=== PATIENT | female | born 1945 ===

== ENCOUNTER 2020-09-09 10:37 | Outpatient (REF) | payer MEDICARE, SELFPAY ==
--- NOTE | 2020-09-09 10:46 | XR_ITS ---
EXAMINATION: XR CHEST CLINICAL INFORMATION: Bronchitis COMPARISON: None TECHNIQUE: 2 views of the chest were obtained. FINDINGS: The lungs are well expanded. There is no focal consolidation, edema, or effusion. No pneumothorax. The cardiomediastinal silhouette is within normal limits of size with a calcified aorta. No acute osseous abnormality. Scoliotic curvature of the spine. XR/XR chest 2V IMPRESSION: No acute pulmonary finding.
== END 2020-09-09 10:38 | disposition home or self-care (01) ==
LOC: HO.XRAY 10:37
PROVIDERS: Visit Provider Nurse Practitioner Family
DX: J40 Bronchitis, not specified as acute or chronic (principal)
CPT/HCPCS: 71046

== ENCOUNTER 2020-09-21 11:37 | Emergency (ER) | payer MEDICARE, SELFPAY ==
[2020-09-21 11:51] VITALS: BP 159/70; PULSE 87; RESP 26; TEMP 37; O2SAT 89; BMI 25.2
--- NOTE | 2020-09-21 11:55 | ECG_ITS ---
Test Reason : SOB Blood Pressure : / mmHG Vent. Rate : 091 BPM Atrial Rate : 091 BPM P-R Int : 148 ms QRS Dur : 078 ms QT Int : 340 ms P-R-T Axes : 039 038 024 degrees QTc Int : 418 ms Normal sinus rhythm Possible Left atrial enlargement Nonspecific ST abnormality Abnormal ECG No previous ECGs available Referred By: Jos Purvis Electronically Signed By:ABIGAIL CELESTE MD
--- NOTE | 2020-09-21 11:55 | XR_ITS ---
EXAMINATION: XR CHEST CLINICAL INFORMATION: Source of breath COMPARISON: September 09, 2020 TECHNIQUE: AP portable view of the chest was obtained. FINDINGS: There is no evidence of acute parenchymal disease, pneumothorax, or pleural effusion. Heart normal size. No evidence of pulmonary edema. Scoliosis of the thoracic and lumbar spine present. XR/XR chest 1V IMPRESSION: No acute disease.
--- NOTE | 2020-09-21 11:58 | ED.SOB ---
HPI - SOB/Dyspnea General Chief Complaint: Dyspnea Stated Complaint: sob Time Seen by Provider: 09/21/20 11:55 Source: patient Mode of arrival: ambulatory Limitations: no limitations History of Present Illness HPI Narrative: patient with history of COPD/bronchitis chronic smoker >50 pack years been coughing for last 2 weeks seen PCP on 09/09 started on Levaquin for 1 week and still patient coughing for last few days not feeling better , mostly cough is dry with mucopurulent phlegm sometimes. patient denies any fever or contact with any COVID patient. Patient denies any chest pain or leg swelling, patient denied any significant weight loss or loss of appetite she had a x-ray done on 09/09 which was negative MD elicited complaint: shortness of breath Pertinent past history: COPD Onset (ago): week(s) (2) Timing: constant Severity: moderate Exacerbating factors: coughing and deep breaths Relieving factors: bronchodilators Known history of: COPD Associated symptoms: pain with inspiration, cough and sputum production Treatment prior to arrival: bronchodilator Related Data Home oxygen amount: none Previous Rx's Medication Instructions Recorded albuterol sulfate 90 mcg/actuation 2 puff INHALATION Q6H PRN 15 Days 09/09/20 aerosol inhaler #6.7 g dextromethorphan-guaifenesin 30 1 tab PO Q12H PRN 10 Days #20 tab 09/09/20 mg-600 mg tablet extended [id number] hr levofloxacin 500 mg tablet 500 mg PO DAILY 7 Days #7 tab 09/09/20 Allergies Allergy/AdvReac Type Severity Reaction Status Date / Time Sulfa (Sulfonamide Allergy Unknown UNKNOWN Verified 09/21/20 11:51 Antibiotics) [SULFA (SULFONAMIDE ANTIBIOTICS)] Review of Systems Constitutional: Constitutional: Denies chills, Denies fatigue, Denies fever(s), Denies headache(s), Denies lethargy and Denies malaise Eyes: Eyes: Reports no additional eye complaints ENT: Reports system reviewed and no additional complaints, except as documented and Denies headache(s) Cardiovascular: Cardiovascular: Reports no additional cardiovascular complaints, Denies pedal edema, Reports dyspnea and Reports dyspnea on exertion Respiratory: Respiratory: Reports chest congestion, Reports cough, Reports pain on inspiration, Reports pain with cough, Reports dyspnea, Reports dyspnea on exertion and Reports wheezing Gastrointestinal: Gastrointestinal: Denies abdominal pain, Denies diarrhea, Denies nausea and Denies vomiting Genitourinary: Genitourinary: Reports no additional female genitourinary complaints, Denies dysuria, Denies flank pain, Denies urinary hesitancy and Denies urinary urgency Musculoskeletal: Musculoskeletal: Reports no additional musculoskeletal complaints Neurologic: Reports system reviewed and no additional complaints, except as documented and Denies headache(s) Endocrine: Endocrine: Denies fatigue Allergic/Immunologic: Allergic/Immunologic: Reports wheezing PMFSH Past Medical History Medical History Bronchitis Lower back pain Social History Social History Alcohol intake: never Smoked in Last 30 Days: No Use of substances other than those prescribed or required for medical reasons: No Advance Directives: No Advance Directives Information Provided: Yes Physical Exam Vital Signs: Vital Signs: Last Vital Signs Temp 98.6 F 09/21/20 11:51 Pulse 97 09/21/20 15:39 Resp 20 09/21/20 15:39 BP 121/78 09/21/20 15:39 Pulse Ox 96 09/21/20 16:02 Body Mass Index 25.2 Const: General: cooperative, well developed, alert, awake and acute distress moderate Nutritional Appearance: average body habitus Orientation/consciousness: oriented to person, oriented to place, oriented to time and patient oriented x3 Limitations: no limitations HENMT: Head: Yes normal to inspection Ears: hearing grossly normal bilaterally Mouth: moist mucous membranes Eyes: Conjunctivae: conjunctivae normal Sclerae: sclerae normal Neck: Neck: Yes normal visual inspection Thyroid: Thyroid normal Carotids: normal carotid upstroke Resp: Effort & Inspection: able to speak in complete sentences, audible wheezes, Actively coughing, nasal flaring, respiratory distress, retractions and tachypneic Auscultation: no crackles, rales, rhonchi and wheezes Percussion: percussion normal Cardio: Jugular venous distension: no JVD Rhythm: regular rhythm Heart sounds: S1 normal heart sound present and S2 normal heart sound present Peripheral pulses: Peripheral pulses 2+ throughout GI: Inspection: Yes normal to inspection Palpation (GI): Soft to palpation and nontender : General: Yes no CVA tenderness Back/Spine/Pelvis: Back: no CVA tenderness Thoracic/Lumbar Spine: thoracic and lumbar spine normal to inspection Neuro: General: oriented to person, oriented to place, oriented to time and patient oriented x3 Extrem: General: Yes normal to inspection, Yes no calf tenderness and No pedal edema MDM - SOB/Dyspnea MDM Narrative Medical decision making narrative: patient chronic smoker with COPD desaturating on ambulation, dropped her pulse ox to 82% on ambulation to bathroom received nebulizing treatment in the ER and IV steroid CT chest was done which showed right lung mass specially around main bronchus narrowing it. We do not have any intervention sales associate here will transfer to [facility] under Dr. Combs in the ER Medical Records Attestation: I reviewed the patient's medical records. Lab Data Attestation: I reviewed the patient's lab results. Result diagrams: 09/21/20 12:06 09/21/20 12:06 Labs: Lab Results 09/21/20 09/21/20 09/21/20 Range/Units 12:06 12:06 12:06 WBC 6.1 (4.8-10.8) X10*3/uL RBC 4.16 L (4.20-5.50) X10*6/uL Hgb 14.5 (12.0-16.0) g/dl Hct 42.6 (37-47) % MCV 102.4 H (80-98) fL MCH 34.9 H (27.0-33.0) pg MCHC 34.0 (31.0-35.0) g/dl RDW 11.9 (11.0-16.0) % Plt Count 276 (160-400) X10*3/uL MPV 9.3 L (9.4-12.3) fL Immature Gran % (Auto) 0.3 (0.0-0.4) % Neut % (Auto) 69.4 (45-73) % Lymph % (Auto) 18.2 L (20-40) % Bullock % (Auto) 11.1 H (2-11) % Eos % (Auto) 0.5 (0-4) % Baso % (Auto) 0.5 (0-2) % Lymph # (Auto) 1.1 L (1.2-4.9) X10*3/uL Bullock # (Auto) 0.7 (0.1-1.2) X10*3/uL Eos # (Auto) 0.0 (0.0-0.4) X10*3/uL Baso # (Auto) 0.0 (0.0-0.2) X10*3/uL Abs Immat Gran (auto) 0.02 (0.00-0.03) X10*3/uL Absolute Neuts (auto) 4.2 (2.0-8.3) X10*3/uL Absolute Nucleated RBC 0.000 (0.0-0.012) X10*3/uL Nucleated RBC % (auto) 0.0 (0.0-0.2) /100WBC PT (10.8-13.0) SEC INR (0.9-1.1) APTT (24.1-38.0) SEC Sodium 136 (135-145) mmol/L Potassium 4.0 (3.3-5.1) mmol/l Chloride 98 (96-108) mmol/L Carbon Dioxide 28 (22-29) mmol/L Anion Gap 14 (12-20) BUN 5 L (9-16) mg/dL Creatinine 0.67 (0.5-1.4) mg/dL Estim Creat Clear Calc 72.7 Estimated GFR > 60 Random Glucose 113 (60-115) mg/dL Lactic Acid (0.5-2.0) mmol/L Calcium 9.2 (8.4-10.2) mg/dL Total Bilirubin 0.8 (0.0-1.0) mg/dL Direct Bilirubin 0.3 (0.0-0.5) mg/dL AST 20 (5-31) U/L ALT 12 (0-31) U/L Alkaline Phosphatase 79 (39-117) U/L Troponin I High Sens (<3.5-17.0) ng/L B-Natriuretic Peptide (<100) pg/mL Total Protein 7.1 (6.5-8.0) g/dL Albumin 4.2 (3.5-5.0) g/dL Coronavirus (PCR) NEGATIVE (Negative) Influenza Type A (PCR) NEGATIVE (Negative) Influenza Type B (PCR) NEGATIVE (Negative) RSV RNA Qual (PCR) NEGATIVE (Negative) 11/28/20 11/28/20 11/28/20 Range/Units 12:06 12:06 12:06 WBC (4.8-10.8) X10*3/uL RBC (4.20-5.50) X10*6/uL Hgb (12.0-16.0) g/dl Hct (37-47) % MCV (80-98) fL MCH (27.0-33.0) pg MCHC (31.0-35.0) g/dl RDW (11.0-16.0) % Plt Count (160-400) X10*3/uL MPV (9.4-12.3) fL Immature Gran % (Auto) (0.0-0.4) % Neut % (Auto) (45-73) % Lymph % (Auto) (20-40) % Bullock % (Auto) (2-11) % Eos % (Auto) (0-4) % Baso % (Auto) (0-2) % Lymph # (Auto) (1.2-4.9) X10*3/uL Bullock # (Auto) (0.1-1.2) X10*3/uL Eos # (Auto) (0.0-0.4) X10*3/uL Baso # (Auto) (0.0-0.2) X10*3/uL Abs Immat Gran (auto) (0.00-0.03) X10*3/uL Absolute Neuts (auto) (2.0-8.3) X10*3/uL Absolute Nucleated RBC (0.0-0.012) X10*3/uL Nucleated RBC % (auto) (0.0-0.2) /100WBC PT 12.6 (10.8-13.0) SEC INR 1.1 (0.9-1.1) APTT 33.4 (24.1-38.0) SEC Sodium (135-145) mmol/L Potassium (3.3-5.1) mmol/l Chloride (96-108) mmol/L Carbon Dioxide (22-29) mmol/L Anion Gap (12-20) BUN (9-16) mg/dL Creatinine (0.5-1.4) mg/dL Estim Creat Clear Calc Estimated GFR Random Glucose (60-115) mg/dL Lactic Acid 1.4 (0.5-2.0) mmol/L Calcium (8.4-10.2) mg/dL Total Bilirubin (0.0-1.0) mg/dL Direct Bilirubin (0.0-0.5) mg/dL AST (5-31) U/L ALT (0-31) U/L Alkaline Phosphatase (39-117) U/L Troponin I High Sens < 3.5 (<3.5-17.0) ng/L B-Natriuretic Peptide 33 (<100) pg/mL Total Protein (6.5-8.0) g/dL Albumin (3.5-5.0) g/dL Coronavirus (PCR) (Negative) Influenza Type A (PCR) (Negative) Influenza Type B (PCR) (Negative) RSV RNA Qual (PCR) (Negative) Imaging Data CT scan - chest: Attestation: I personally reviewed and interpreted this imaging study as follows: My impression: [place] [id number] CT Scan Report Signed Patient: Aruna ColbertMR#: [id number] : 7Acct:[id number] Age/Sex: 75 / FADM Date: 09/21/20 Loc: HO.ED Attending Dr: Ordering Physician: Jos Purvis MD Date of Service: 09/21/20 Procedure(s): CT chest wo con Accession Number(s): [id number] cc: Jos Purvis MD~ EXAMINATION: CT CHEST WITHOUT CONTRAST CLINICAL INFORMATION: Left lower lobe pneumonia. Joints of breath COMPARISON: Plain film chest studies of same day and September 09, 2020 TECHNIQUE: Multidetector volumetric CT imaging of the chest was done. Axial MIP volume rendering provided. Sagittal and coronal reformatted images were obtained. This CT examination was performed using dose optimization techniques as appropriate, variously including the following: *Automated exposure control *Adjustment of mA and/or kV according to patient size (this includes techniques or standardized protocols for targeted exams where dose is matched to indication/reason for exam; i.e. extremities or head) *Use of iterative reconstruction technique DLP: 250 mGy-cm FINDINGS: LUNGS: Within the right lower lobe there is a 2.1 x 2.7 x 2.9 cm mass without cavitation or calcification. There is extension medially with perihilar lymphadenopathy measuring approximately 3.3 x 1.9 x 6.5 cm in size extensive right hilar and mediastinal lymphadenopathy with some narrowing of the right mainstem bronchus. There are some scattered sub-4 mm densities present. A few scattered calcified granulomas are present. No bronchiectasis. MEDIASTINUM: Heart normal size. Coronary artery calcific dictation present as well as nonocclusive calcified plaque within the aortic arch. No thoracic aortic aneurysm. No pericardial effusion. There is extensive mediastinal lymphadenopathy extending from the vascular space along the right paratracheal region and extending into the precarinal region as well as subcarinal region. Right hilar lymphadenopathy present. As an example the precarinal lymphadenopathy measures approximately 3.0 x 4.1 cm in size and subcarinal lymphadenopathy measures 5.5 x 4.3 cm in size. PLEURA: There is no pleural effusion. No pleural mass or thickening. AXILLA: No lymphadenopathy. Status post previous right breast surgery. UPPER ABDOMEN: There is a left adrenal gland lesion measuring 3.1 x 2.3 cm in size. The right adrenal gland appears unremarkable. OSSEOUS STRUCTURES: No acute destructive bony lesions appreciated. There is scoliosis of the thoracic spine convex right and of the lumbar spine convex left. CT/CT chest wo con IMPRESSION: Large right lower lobe mass with perihilar, hilar, and mediastinal lymphadenopathy as described. Left adrenal gland lesion which may represent a metastatic lesion. This critical result was discussed with Dr. Purvis at 3:40 PM on September 21, 2020 and it was ascertained that the content and urgency of the report was understood at the time of direct communication. Dictated By:JUSTINE LUTZ MD Signed By:<Electronically signed by JUSTINE LUTZ MD in OV> ECG Data Attestation: I personally reviewed and interpreted this ECG as follows: ECG interpretation date: 09/21/20 Interpretation: normal sinus rhythm with heart rate of [address] T wave changes normal axis normal intervals impression no acute ischemia Discharge Plan Discharge Prescriptions: No Action levofloxacin 500 mg tablet 500 mg PO DAILY 7 Days Qty: 7 RF: 0 Mucinex DM 30-600 mg tablet extended release 12 hr 1 tab PO Q12H PRN (Reason: cough) 10 Days Qty: 20 RF: 0 albuterol sulfate 90 mcg/actuation HFA aerosol inhaler 2 puff inhalation Q6H PRN (Reason: shortness of breath or wheezing) 15 Days Qty: 6.7 RF: 0
--- NOTE | 2020-09-21 12:01 | PC.NURSE ---
2l nc applied. tachipnea decreasing with rest. spking full sentences.
[2020-09-21 12:02] VITALS: O2SAT 100
[2020-09-21] MEDS: Albuterol Sulfate (0.083%) 2.5 MG/3 ML VIAL.NEB 5 MG INHALE (12:06)
[2020-09-21] MEDS: Albuterol/Iprat 2.5/0.5MG 3 ML AMPUL.NEB INHALE (12:07)
[2020-09-21 12:11] LABS: MANUAL DIFF FLAG NO
[2020-09-21 12:12] VITALS: PULSE 88; O2SAT 96; O2SAT 98
[2020-09-21 12:13] LABS: Basophils Percent Auto 0.5 % (0-2); Eosinophils Percent Auto 0.5 % (0-4); Hematocrit 42.6 % (37-47); Hemoglobin 14.5 g/dl (12.0-16.0); Imm Gran Abs Auto 0.02 X10*3/uL (0.00-0.03); Imm Gran Pct Auto 0.3 % (0.0-0.4); Lymphocytes Absolute Auto 1.1 X10*3/uL (1.2-4.9); Lymphocytes Percent Auto 18.2 % (20-40); Mean Corpuscular Hemoglobin 34.9 pg (27.0-33.0); Mean Corpuscular Volume 102.4 fL (80-98); Mean Platelet Volume 9.3 fL (9.4-12.3); Monocytes Absolute Auto 0.7 X10*3/uL (0.1-1.2); Monocytes Percent Auto 11.1 % (2-11); Neutrophils Absolute Auto 4.2 X10*3/uL (2.0-8.3); Neutrophils Percent Auto 69.4 % (45-73); Platelet Count 276 X10*3/uL (160-400); Red Blood Count 4.16 X10*6/uL (4.20-5.50); Red Cell Distribution Width 11.9 % (11.0-16.0); White Blood Count 6.1 X10*3/uL (4.8-10.8)
[2020-09-21 12:22] LABS: INTERNATIONAL NORM RATIO 1.1 (0.9-1.1); Prothrombin Time 12.6 SEC (10.8-13.0)
[2020-09-21 12:24] LABS: Partial Thromboplastin Time 33.4 SEC (24.1-38.0)
[2020-09-21 12:37] LABS: Lactic Acid 1.4 mmol/L (0.5-2.0)
[2020-09-21 12:43] LABS: Alanine Aminotransferase 12 U/L (0-31); Albumin Level 4.2 g/dL (3.5-5.0); Alkaline Phosphatase 79 U/L (39-117); Anion Gap 14 (12-20); Aspartate Amino Transferase 20 U/L (5-31); Bilirubin Direct 0.3 mg/dL (0.0-0.5); Bilirubin Total 0.8 mg/dL (0.0-1.0); Blood Urea Nitrogen 5 mg/dL (9-16); Calcium 9.2 mg/dL (8.4-10.2); Carbon Dioxide 28 mmol/L (22-29); Chloride 98 mmol/L (96-108); Creatinine Clr Calc Pharmacy 72.7; Estimated Glomerular Filt Rate > 60; Glucose Random 113 mg/dL (60-115); Sodium 136 mmol/L (135-145); Total Protein 7.1 g/dL (6.5-8.0)
[2020-09-21 12:45] LABS: B Type Natriuretic Peptide 33 pg/mL (<100); Troponin-I High Sensitivity < 3.5 ng/L (<3.5-17.0)
[2020-09-21 12:57] LABS: Influenza A PCR NEGATIVE (Negative); Influenza B PCR NEGATIVE (Negative); Resp Syncy Virus RNA Qual PCR NEGATIVE (Negative); SARS COV2 PCR INHOUSE NEGATIVE (Negative)
--- NOTE | 2020-09-21 13:34 | CT_ITS ---
EXAMINATION: CT CHEST WITHOUT CONTRAST CLINICAL INFORMATION: Left lower lobe pneumonia. Joints of breath COMPARISON: Plain film chest studies of same day and September 09, 2020 TECHNIQUE: Multidetector volumetric CT imaging of the chest was done. Axial MIP volume rendering provided. Sagittal and coronal reformatted images were obtained. This CT examination was performed using dose optimization techniques as appropriate, variously including the following: *Automated exposure control *Adjustment of mA and/or kV according to patient size (this includes techniques or standardized protocols for targeted exams where dose is matched to indication/reason for exam; i.e. extremities or head) *Use of iterative reconstruction technique DLP: 250 mGy-cm FINDINGS: LUNGS: Within the right lower lobe there is a 2.1 x 2.7 x 2.9 cm mass without cavitation or calcification. There is extension medially with perihilar lymphadenopathy measuring approximately 3.3 x 1.9 x 6.5 cm in size extensive right hilar and mediastinal lymphadenopathy with some narrowing of the right mainstem bronchus. There are some scattered sub-4 mm densities present. A few scattered calcified granulomas are present. No bronchiectasis. MEDIASTINUM: Heart normal size. Coronary artery calcific dictation present as well as nonocclusive calcified plaque within the aortic arch. No thoracic aortic aneurysm. No pericardial effusion. There is extensive mediastinal lymphadenopathy extending from the vascular space along the right paratracheal region and extending into the precarinal region as well as subcarinal region. Right hilar lymphadenopathy present. As an example the precarinal lymphadenopathy measures approximately 3.0 x 4.1 cm in size and subcarinal lymphadenopathy measures 5.5 x 4.3 cm in size. PLEURA: There is no pleural effusion. No pleural mass or thickening. AXILLA: No lymphadenopathy. Status post previous right breast surgery. UPPER ABDOMEN: There is a left adrenal gland lesion measuring 3.1 x 2.3 cm in size. The right adrenal gland appears unremarkable. OSSEOUS STRUCTURES: No acute destructive bony lesions appreciated. There is scoliosis of the thoracic spine convex right and of the lumbar spine convex left. CT/CT chest wo con IMPRESSION: Large right lower lobe mass with perihilar, hilar, and mediastinal lymphadenopathy as described. Left adrenal gland lesion which may represent a metastatic lesion. This critical result was discussed with Dr. Purvis at 3:40 PM on September 21, 2020 and it was ascertained that the content and urgency of the report was understood at the time of direct communication.
[2020-09-21] MEDS: methylPREDNISolone Sod Succ/PF 125 MG/2 ML VIAL IVPUSH (13:41)
--- NOTE | 2020-09-21 13:44 | PC.NURSE ---
family updated. pt to bathroom via [facility] on o2
[2020-09-21 15:39] VITALS: BP 121/78; PULSE 97; RESP 20; O2SAT 100
--- NOTE | 2020-09-21 16:01 | PC.NURSE ---
icu/pulmonolgy at bedside. plan to call [facility] for transfer
[2020-09-21 16:02] VITALS: O2SAT 82; O2SAT 86; O2SAT 96
--- NOTE | 2020-09-21 16:15 | P.PNCC_ITS ---
Critical Care Event Note Summary Code activated: No Narrative: 75-year-old lady, recent 30+ pack-year smoker, with underlying history of COPD and recurrent bronchitis evaluated in emergency room for dyspnea for the last 2 weeks. Chest x-ray with widened mediastinum. CT chest demonstrating large right lower lobe mass (3.3x6.5cm) with perihilar, hilar, and mediastinal involvement including right mainstem bronchus compression and narrowing. Impression: Metastatic lung cancer with right mainstem bronchus narrowing resulting in hypoxemia. Recommendations: Transfer for urgent evaluation by interventional hospice care transitions coordinator for likely endobronchial stenting with biopsies. Critical Care Time (minutes): 0
--- NOTE | 2020-09-21 16:30 | PC.NURSE ---
pt to go to [facility] ed by [facility]
--- NOTE | 2020-09-21 16:51 | PC.NURSE ---
pt dc at this time to [facility]
--- NOTE | 2020-09-21 17:21 | PC.NURSE ---
multiple attempts to call report at [facility] and have been hung up on multiple times.
--- NOTE | 2020-09-21 17:27 | PC.NURSE ---
report given to clarissa in transfer center
== END 2020-09-21 17:02 | disposition other institution (70) ==
PROVIDERS: Emergency Provider Internal Medicine; PCP Nurse Practitioner Family
DX: J44.9 Chronic obstructive pulmonary disease, unspecified (principal); F17.210 Nicotine dependence, cigarettes, uncomplicated; Z71.6 Tobacco abuse counseling; Z79.899 Other long term (current) drug therapy; Z20.828 Contact with and (suspected) exposure to other viral communicable diseases
CPT/HCPCS: 0241U; 11104; 36415; 71045; 71250; 80048; 80076; 83605; 83880; 84484; 85025; 85610; 85730; 87040; 93005; 94640; 94644; 99285; J2930

== ENCOUNTER 2021-06-07 09:13 | Outpatient (REF) | payer MEDICARE, SELFPAY ==
--- NOTE | ~2021-06-07 | XR_ITS ---
EXAMINATION: XR LUMBOSACRAL SPINE WITH OBLIQUES CLINICAL INFORMATION: Lower back pain. COMPARISON: None TECHNIQUE: AP, lateral, coned-down, bilateral oblique, flexion, and extension views of the lumbosacral spine. FINDINGS: Prominent levocurvature of the lumbar spine centered at the L3 vertebral body. The lumbar lordosis is maintained. No acute fracture or subluxation. No loss of vertebral body height. Multilevel loss of intervertebral disc height with endplate osteophytes and prominent bilateral facet arthropathy. No significant subluxation with flexion or extension. Atherosclerotic calcifications. XR/XR lumbar spine 6V w bending IMPRESSION: Prominent levocurvature of the lumbar spine. No significant subluxation with flexion or extension. Prominent multilevel degenerative disc disease and bilateral facet arthropathy.
[2021-06-07 09:49] LABS: MANUAL DIFF FLAG NO
[2021-06-07 10:10] LABS: Alanine Aminotransferase 11 U/L (0-31); Anion Gap 14 (12-20); Aspartate Amino Transferase 19 U/L (5-31); Blood Urea Nitrogen 5 mg/dL (9-16); Calcium 9.4 mg/dL (8.4-10.2); Carbon Dioxide 26 mmol/L (22-29); Chloride 103 mmol/L (96-108); Cholesterol 176 mg/dL; Estimated Glomerular Filt Rate > 60; Glucose Fasting 111 mg/dL (60-99); HDL Cholesterol 75 mg/dL; Iron 104 mcg/dL (30-160); LDL Cholesterol Calculated 91 mg/dl; Percent Iron Saturation 41 % (15-50); Potassium 4.5 mmol/L (3.3-5.1); Sodium 138 mmol/L (135-145); Total Iron Binding Capacity 253 mcg/dL (228-428); Triglycerides 53 mg/dL; Unsaturated Iron Binding 149 ug/dL
[2021-06-07 10:30] LABS: Basophils Percent Auto 0.6 % (0-2); Eosinophils Absolute Auto 0.1 X10*3/uL (0.0-0.4); Eosinophils Percent Auto 1.1 % (0-4); Hematocrit 35.8 % (37-47); Hemoglobin 11.9 g/dl (12.0-16.0); Imm Gran Abs Auto 0.02 X10*3/uL (0.00-0.03); Imm Gran Pct Auto 0.4 % (0.0-0.4); Lymphocytes Absolute Auto 0.6 X10*3/uL (1.2-4.9); Lymphocytes Percent Auto 10.1 % (20-40); Mean Corpuscular HGB Conc 33.2 g/dl (31.0-35.0); Mean Corpuscular Hemoglobin 35.8 pg (27.0-33.0); Mean Corpuscular Volume 107.8 fL (80-98); Mean Platelet Volume 9.2 fL (9.4-12.3); Monocytes Absolute Auto 0.9 X10*3/uL (0.1-1.2); Monocytes Percent Auto 17.3 % (2-11); Neutrophils Absolute Auto 3.8 X10*3/uL (2.0-8.3); Neutrophils Percent Auto 70.5 % (45-73); Platelet Count 307 X10*3/uL (160-400); Red Blood Count 3.32 X10*6/uL (4.20-5.50); Red Cell Distribution Width 14.2 % (11.0-16.0); White Blood Count 5.4 X10*3/uL (4.8-10.8)
[2021-06-07 10:35] LABS: TSH reflex Free T4 15.84 uIU/mL (0.32-4.0); Vitamin D 25-OH Total 8.5 ng/mL (>30)
[2021-06-07 11:13] LABS: Free T4 (Free Thyroxine) 0.78 ng/dL (0.71-1.85)
[2021-06-07 14:22] LABS: Folate 3.8 ng/mL (> or = 4.0); Vitamin B12 252 pg/mL (200-900)
== END 2021-06-07 09:14 | disposition home or self-care (01) ==
LOC: HO.LAB 09:13
PROVIDERS: PCP Internal Medicine; Visit Provider Internal Medicine
DX: R53.83 Other fatigue (principal); I10 Essential (primary) hypertension; G89.29 Other chronic pain; M54.5 Low back pain; Z85.118 Personal history of other malignant neoplasm of bronchus and lung; Z86.2 Personal history of diseases of the blood and blood-forming organs and certain disorders involving the immune mechanism; Z92.21 Personal history of antineoplastic chemotherapy
CPT/HCPCS: 36415; 72114; 80048; 80061; 82306; 82607; 82746; 83540; 84439; 84443; 84450; 84460; 85025

== ENCOUNTER 2021-07-25 03:09 | Emergency (ER) | payer MEDICARE, SELFPAY ==
[2021-07-25] VITALS (9 sets, daily range): BP systolic 109–135; BP diastolic 58–69; PULSE 105–115; RESP 15–37; TEMP 35.5–36.1; O2SAT 98–100; BMI 28.7
--- NOTE | ~2021-07-25 | CT_ITS ---
STUDY PERFORMED: CTA OF THE CHEST, ABDOMEN AND PELVIS WITH AND WITHOUT CONTRAST CLINICAL INFORMATION: Shortness of breath. Back and abdominal pain. DESCRIPTION: Initial noncontrast research programmer imaging of the chest, abdomen, and pelvis performed. Contrast timing was performed at the level of the distal descending thoracic aorta. Subsequently, arterial phase multidetector volumetric imaging was performed through the chest, abdomen and pelvis following the administration of 85 mL Omnipaque 350 intravenous contrast. No contrast reaction reported Sagittal and coronal reformatted images were obtained on the technologist workstation. Three-dimensional MIP reformatted imaging was performed and reviewed. This CT examination was performed using dose optimization techniques as appropriate, variously including the following: *Automated exposure control *Adjustment of mA and/or kV according to patient size (this includes techniques or standardized protocols for targeted exams where dose is matched to indication/reason for exam; i.e. extremities or head) *Use of iterative reconstruction technique Total exam dose-length product 899 mGy-cm COMPARISON: 09/21/[address] FINDINGS: VASCULAR: 1. 3 cusped aortic valve. Normal origins of the main coronary arteries. The ascending thoracic aorta is normal in course and caliber without dissection. 2. The aortic arch is normal in course and caliber without dissection. Normal 3 vessel branching configuration. 3. The descending thoracic aorta is normal in course and caliber without dissection. Moderate atherosclerotic calcifications. 4. The abdominal aorta, iliac vessels, and visualized femoral vasculature are normal in course and caliber without dissection. Moderate atherosclerotic calcification. 5. The celiac axis, superior mesenteric artery, and inferior mesenteric artery origins are widely patent. 6. Single bilateral renal arteries are widely patent. Mild stenosis at the origin of the left renal artery. 7. Although not tailored for evaluation of the pulmonary arteries, there is no central pulmonary embolism. Nonvascular: CHEST: LUNG/PLEURA: The central airways are patent. There is right-sided bronchus intermedius occlusion with partial occlusion of the lower and middle lobe bronchi. Large right pleural effusion. Numerous pulmonary nodules are seen throughout both lungs. These are new from 09/13/2020. For instance there is a dominant nodule in the left lower lobe which measures 2.9 cm on series 7 image 371. No pneumothorax. MEDIASTINUM: Normal heart size. No pericardial effusion. No hilar or mediastinal lymphadenopathy. CHEST WALL/AXILLA: No axillary or internal mammary lymphadenopathy. No chest wall mass. ABDOMEN AND PELVIS: LIVER, GALLBLADDER, AND BILIARY TREE: The liver is normal in size, shape, and attenuation. No focal hepatic lesion or biliary ductal dilatation is present. The gallbladder is unremarkable with no evidence of radiopaque gallstones, gallbladder wall thickening, or obvious pericholecystic inflammatory changes. PANCREAS: The pancreatic parenchyma is homogenous. Stranding surrounding the pancreas likely represent blood products tracking from the kidney. SPLEEN: Unremarkable. ADRENAL GLANDS: The right adrenal gland is unremarkable. Thickened appearance of the left adrenal gland. KIDNEYS AND URETERS: Normal enhancement in appearance of the right kidney without hydronephrosis or nephrolithiasis. Abnormal left kidney. There is lack of enhancement at the lower to mid aspect of the kidney. This has a somewhat masslike appearance measuring up to 4.5 cm. There is surrounding stranding and fluid, particularly posterior to the kidney consistent with subcapsular hematoma. Fluid is seen throughout the perirenal space extending inferiorly, tracking along the paracolic gutter pelvis. No definite evidence of active extravasation. BLADDER: Unremarkable. GASTROINTESTINAL TRACT: The stomach is unremarkable. The small bowel is normal in caliber. No obstruction. Colonic diverticulosis without diverticulitis. ABDOMINAL WALL: No significant hernia is appreciated. LYMPH NODES: Normal. PELVIC VISCERA: The uterus and adnexa are unremarkable. OSSEOUS STRUCTURES: Scoliotic curvature of the spine with degenerative changes present. Mild degenerative changes in the hips.. CT/CT angio abdomen pelvis IMPRESSION: 1. Abnormal appearance of the left kidney. Lack of enhancement of the mid to lower aspect with associated masslike appearance. Cannot exclude presence of a neoplasm which has bled. There is surrounding hematoma, most prominent posteriorly as a subcapsular hematoma. Additional blood products track along the pancreas and posteriorly along the paracolic gutter. 2. Numerous bilateral pulmonary nodules are new from the CT on 09/21/2020. These are concerning for metastatic disease. Prominent right pleural effusion noted. 3. No acute vascular abnormality. No dissection.
--- NOTE | 2021-07-25 03:18 | ECG_ITS ---
Test Reason : SOB,BACK PAIN Blood Pressure : / mmHG Vent. Rate : 114 BPM Atrial Rate : 114 BPM P-R Int : 146 ms QRS Dur : 086 ms QT Int : 348 ms P-R-T Axes : 052 041 034 degrees QTc Int : 479 ms Poor data quality, interpretation may be adversely affected Sinus tachycardia Possible Left atrial enlargement Borderline ECG When compared with ECG of 21-SEP-2020 12:14, Non-specific change in ST segment in Lateral leads Nonspecific T wave abnormality now evident in Lateral leads Referred By: Trang Euceda Electronically Signed By:DAVID CH
[2021-07-25 03:58] LABS: MANUAL DIFF FLAG NO
[2021-07-25 04:02] LABS: Basophils Percent Auto 0.2 % (0-2); Eosinophils Percent Auto 0.1 % (0-4); Hematocrit 29.6 % (37-47); Imm Gran Abs Auto 0.15 X10*3/uL (0.00-0.03); Lymphocytes Absolute Auto 0.6 X10*3/uL (1.2-4.9); Lymphocytes Percent Auto 3.5 % (20-40); Mean Corpuscular HGB Conc 33.8 g/dl (31.0-35.0); Mean Corpuscular Hemoglobin 36.1 pg (27.0-33.0); Mean Corpuscular Volume 106.9 fL (80-98); Monocytes Absolute Auto 1.2 X10*3/uL (0.1-1.2); Monocytes Percent Auto 7.8 % (2-11); Neutrophils Absolute Auto 13.8 X10*3/uL (2.0-8.3); Neutrophils Percent Auto 87.4 % (45-73); Platelet Count 337 X10*3/uL (160-400); Red Blood Count 2.77 X10*6/uL (4.20-5.50); White Blood Count 15.7 X10*3/uL (4.8-10.8)
[2021-07-25] MEDS: iohexoL 350 MG/ML 100 ML INFUS..BTL 85 ML IV (04:05)
--- NOTE | 2021-07-25 04:06 | ED_ITS ---
HPI - General Adult General Chief complaint: General Medical Stated complaint: abdominal and back pain Time Seen by Provider: 07/25/21 03:14 Source: patient and family (Daughter) Mode of arrival: EMS History of Present Illness HPI narrative: 75-year-old female who with known history of lung CA who woke up with severe back pain and upper abdominal pain that started acutely. EMS states that patient is tactile cool to touch and pale and although patient has history of chronic back pain given the acute onset of this presentation will be e mergently worked up for possible dissection or aneurysm. Daughter states recent evaluation showed that mass head not increased in size, but there had been ?something seen on the right?. Related Data Home Medications Medication Instructions Recorded Confirmed acetaminophen 325 mg tablet 325 mg PO QID PRN 06/03/21 06/11/21 (Tylenol) umeclidinium 62.5 mcg-vilanterol 1 inh INHALATION DAILY 06/03/21 06/11/21 25 mcg/actuation powdr for inhalation (Anoro Ellipta) Previous Rx's Medication Instructions Recorded nebulizers #1 ea 10/10/20 albuterol sulfate 90 mcg/actuation 2 puff INHALATION Q6H PRN 15 Days 10/11/20 aerosol inhaler #6.7 g ipratropium bromide 0.02 % 2.5 ml INHALATION Q6H PRN #12.5 ml 10/16/20 solution for inhalation cholecalciferol (vitamin D3) 1,250 1,250 mcg PO QWEEK 90 Days #13 cap 06/11/21 mcg (50,000 unit) capsule tramadol 50 mg tablet 25 mg PO BID PRN #30 tab 07/16/21 Allergies Allergy/AdvReac Type Severity Reaction Status Date / Time Sulfa (Sulfonamide Allergy Unknown UNKNOWN Verified 07/25/21 04:47 Antibiotics) [SULFA (SULFONAMIDE ANTIBIOTICS)] Review of Systems Review of Systems: Pertinent positives and negatives as stated in HPI 10 point review of systems is otherwise negative. FORMERLY [facility], [facility] Past Medical History Source: nursing notes reviewed Medical History COPD (chronic obstructive pulmonary disease) Elevated TSH Fatigue History of chemotherapy Hx of cancer of lung Hx of iron deficiency anemia Impaired fasting glucose Impaired hearing Lower back pain Lumbar arthropathy Toenail deformity Vitamin B12 deficiency Vitamin D deficiency Surgical History History of tonsillectomy History of tubal ligation Family History Family History Father Gastric cancer CVD (cardiovascular disease) Mother Hypertension CVD (cardiovascular disease) Coronary aneurysm Brother Brain tumor Sister Cancer Son Myocardial infarction Social History Social History Housing: Apartment Alcohol intake: never Patient Tobacco Use Status: Former Tobacco user Years Smoked: 30 yrs e-Cigarette/Vaping Use: Never Used Second Hand Smoke Exposure: No Advance Directives: No Advance Directives Information Provided: No service: No Current occupational status: retired Physical Exam Vital Signs: Vital Signs: Last Vital Signs Temp 96.6 F L 07/25/21 05:21 Pulse 111 H 07/25/21 05:21 Resp 17 07/25/21 05:21 BP 130/65 07/25/21 05:21 Pulse Ox 100 07/25/21 05:18 Body Mass Index 28.7 VITAL SIGNS: Reviewed. GENERAL: Well developed, well nourished, in no acute distress. HEAD: Normocephalic/atraumatic EYES: PERRLA, EOMI EARS: Ext canals without abnormality NOSE: Nares patent bilateral OROPHARYNX: no oral lesions noted, posterior pharynx clear LUNGS: Normal breath sounds. No adventitious sounds or accessory muscle use. SpO2<100> CARDIOVASCULAR: Regular rate and rhythm without noted murmurs, no JVD or lower extremity edema. ABDOMEN: Soft, diffusely tender, non-distended with bowel sounds. MUSCULOSKELETAL: No tenderness, deformities, or effusions noted on gross inspection. EXTREMITIES: No cyanosis, clubbing or edema. SKIN: Inspection of the skin reveals pallor, tactile cool NEUROLOGIC: Alert and oriented x 4. Strength and sensation to light touch were grossly intact x 4. Course Course Course Narrative: 75-year-old female with history and clinical presentation emergently concerning for possible dissection/aneurysm leak and on review of all investigations there is concern for bleeding renal mass with surrounding hematoma and blood tracking along pancreas as well as the pericolic gutter. Patient remains hemodynamically stable but tachycardic and will receive blood in route to and accepted transfer to [facility] ER. Both patient and her daughter are aware of all results and findings. COVID testing is negative. I discussed case with [facility] who accepts transfer. Imaging was sent with the patient. Medical Decision Making Lab Data Result diagrams: 07/25/21 03:45 07/25/21 03:45 Labs: Lab Results 07/25/21 07/25/21 07/25/21 Range/Units 03:45 03:45 03:45 WBC 15.7 H (4.8-10.8) X10*3/uL RBC 2.77 L (4.20-5.50) X10*6/uL Hgb 10.0 L (12.0-16.0) g/dl Hct 29.6 L (37-47) % MCV 106.9 H (80-98) fL MCH 36.1 H (27.0-33.0) pg MCHC 33.8 (31.0-35.0) g/dl RDW 13.0 (11.0-16.0) % Plt Count 337 (160-400) X10*3/uL MPV 9.0 L (9.4-12.3) fL Immature Gran % (Auto) 1.0 H (0.0-0.4) % Neut % (Auto) 87.4 H (45-73) % Lymph % (Auto) 3.5 L (20-40) % [place] % (Auto) 7.8 (2-11) % Eos % (Auto) 0.1 (0-4) % Baso % (Auto) 0.2 (0-2) % Lymph # (Auto) 0.6 L (1.2-4.9) X10*3/uL [place] # (Auto) 1.2 (0.1-1.2) X10*3/uL Eos # (Auto) 0.0 (0.0-0.4) X10*3/uL Baso # (Auto) 0.0 (0.0-0.2) X10*3/uL Abs Immat Gran (auto) 0.15 H (0.00-0.03) X10*3/uL Absolute Neuts (auto) 13.8 H (2.0-8.3) X10*3/uL Absolute Nucleated RBC 0.000 (0.0-0.012) X10*3/uL Nucleated RBC % (auto) 0.0 (0.0-0.2) /100WBC PT 13.2 H (9.9-13.0) SEC INR 1.2 H (0.9-1.1) Sodium 131 L (135-145) mmol/L Potassium 3.8 (3.3-5.1) mmol/L Chloride 97 (96-108) mmol/L Carbon Dioxide 22 (22-29) mmol/L Anion Gap 16 (12-20) BUN 5 L (9-16) mg/dL Creatinine 0.73 (0.5-1.4) mg/dL Estim Creat Clear Calc 65.9 Estimated GFR > 60 Random Glucose 215 H (60-115) mg/dL Calcium 9.0 (8.4-10.2) mg/dL Total Bilirubin 0.5 (0.0-1.0) mg/dL AST 25 (5-31) U/L ALT 8 (0-31) U/L Alkaline Phosphatase 76 (39-117) U/L Troponin I High Sens (<3.5-17.0) ng/L B-Natriuretic Peptide (<100) pg/mL Total Protein 6.2 L (6.5-8.0) g/dL Albumin 3.8 (3.5-5.0) g/dL Urine Color Urine Appearance Urine pH (5.0-8.0) Ur Specific [place] (1.005-1.025) Urine Protein (NEG-TRACE) MG/DL Urine Glucose (UA) (NEG) MG/DL Urine Ketones (NEG) MG/DL Urine Blood (NEG) Urine Nitrite (NEG) Ur Leukocyte Esterase (NEG) Urine RBC (0) /HPF Urine WBC (0-4) /HPF Ur Squamous Epith Cells /LPF Urine Bacteria /LPF COVID-19 ([facility]) (Negative) COVID-19 Clin Com Blood Type Antibody Screen Crossmatch 07/25/21 07/25/21 07/25/21 Range/Units 03:45 03:51 04:41 WBC (4.8-10.8) X10*3/uL RBC (4.20-5.50) X10*6/uL Hgb (12.0-16.0) g/dl Hct (37-47) % MCV (80-98) fL MCH (27.0-33.0) pg MCHC (31.0-35.0) g/dl RDW (11.0-16.0) % Plt Count (160-400) X10*3/uL MPV (9.4-12.3) fL Immature Gran % (Auto) (0.0-0.4) % Neut % (Auto) (45-73) % Lymph % (Auto) (20-40) % [place] % (Auto) (2-11) % Eos % (Auto) (0-4) % Baso % (Auto) (0-2) % Lymph # (Auto) (1.2-4.9) X10*3/uL [place] # (Auto) (0.1-1.2) X10*3/uL Eos # (Auto) (0.0-0.4) X10*3/uL Baso # (Auto) (0.0-0.2) X10*3/uL Abs Immat Gran (auto) (0.00-0.03) X10*3/uL Absolute Neuts (auto) (2.0-8.3) X10*3/uL Absolute Nucleated RBC (0.0-0.012) X10*3/uL Nucleated RBC % (auto) (0.0-0.2) /100WBC PT (9.9-13.0) SEC INR (0.9-1.1) Sodium (135-145) mmol/L Potassium (3.3-5.1) mmol/L Chloride (96-108) mmol/L Carbon Dioxide (22-29) mmol/L Anion Gap (12-20) BUN (9-16) mg/dL Creatinine (0.5-1.4) mg/dL Estim Creat Clear Calc Estimated GFR Random Glucose (60-115) mg/dL Calcium (8.4-10.2) mg/dL Total Bilirubin (0.0-1.0) mg/dL AST (5-31) U/L ALT (0-31) U/L Alkaline Phosphatase (39-117) U/L Troponin I High Sens 3.7 (<3.5-17.0) ng/L B-Natriuretic Peptide 112 H (<100) pg/mL Total Protein (6.5-8.0) g/dL Albumin (3.5-5.0) g/dL Urine Color Urine Appearance Urine pH (5.0-8.0) Ur Specific [place] (1.005-1.025) Urine Protein (NEG-TRACE) MG/DL Urine Glucose (UA) (NEG) MG/DL Urine Ketones (NEG) MG/DL Urine Blood (NEG) Urine Nitrite (NEG) Ur Leukocyte Esterase (NEG) Urine RBC (0) /HPF Urine WBC (0-4) /HPF Ur Squamous Epith Cells /LPF Urine Bacteria /LPF COVID-19 ([place]) Negative (Negative) COVID-19 Clin Com See Note Blood Type A Positive Antibody Screen NEGATIVE Crossmatch See Detail 07/25/21 Range/Units 04:41 WBC (4.8-10.8) X10*3/uL RBC (4.20-5.50) X10*6/uL Hgb (12.0-16.0) g/dl Hct (37-47) % MCV (80-98) fL MCH (27.0-33.0) pg MCHC (31.0-35.0) g/dl RDW (11.0-16.0) % Plt Count (160-400) X10*3/uL MPV (9.4-12.3) fL Immature Gran % (Auto) (0.0-0.4) % Neut % (Auto) (45-73) % Lymph % (Auto) (20-40) % [place] % (Auto) (2-11) % Eos % (Auto) (0-4) % Baso % (Auto) (0-2) % Lymph # (Auto) (1.2-4.9) X10*3/uL [place] # (Auto) (0.1-1.2) X10*3/uL Eos # (Auto) (0.0-0.4) X10*3/uL Baso # (Auto) (0.0-0.2) X10*3/uL Abs Immat Gran (auto) (0.00-0.03) X10*3/uL Absolute Neuts (auto) (2.0-8.3) X10*3/uL Absolute Nucleated RBC (0.0-0.012) X10*3/uL Nucleated RBC % (auto) (0.0-0.2) /100WBC PT (9.9-13.0) SEC INR (0.9-1.1) Sodium (135-145) mmol/L Potassium (3.3-5.1) mmol/L Chloride (96-108) mmol/L Carbon Dioxide (22-29) mmol/L Anion Gap (12-20) BUN (9-16) mg/dL Creatinine (0.5-1.4) mg/dL Estim Creat Clear Calc Estimated GFR Random Glucose (60-115) mg/dL Calcium (8.4-10.2) mg/dL Total Bilirubin (0.0-1.0) mg/dL AST (5-31) U/L ALT (0-31) U/L Alkaline Phosphatase (39-117) U/L Troponin I High Sens (<3.5-17.0) ng/L B-Natriuretic Peptide (<100) pg/mL Total Protein (6.5-8.0) g/dL Albumin (3.5-5.0) g/dL Urine Color YELLOW Urine Appearance HAZY Urine pH 7.0 (5.0-8.0) Ur Specific [place] 1.010 (1.005-1.025) Urine Protein NEG (NEG-TRACE) MG/DL Urine Glucose (UA) 100 H (NEG) MG/DL Urine Ketones NEG (NEG) MG/DL Urine Blood 3+ H (NEG) Urine Nitrite NEG (NEG) Ur Leukocyte Esterase NEG (NEG) Urine RBC 30-49 H (0) /HPF Urine WBC 1-4 (0-4) /HPF Ur Squamous Epith Cells 1+ /LPF Urine Bacteria 1+ /LPF COVID-19 ([facility]) (Negative) COVID-19 Clin Com Blood Type Antibody Screen Crossmatch ECG Data Attestation: I personally reviewed and interpreted this ECG as follows: Prior ECG tracings: available for review (09/21/2020 no acute changes on beba rison) Interpretation: Sinus tachycardia, HR-114, no STEMI, OR/QRS/QTC are within normal limits. Discharge Plan Discharge Clinical Impression: Retroperitoneal hemorrhage, Kidney hematoma Patient Disposition: Xfer [facility] Transfer Details: Retroperitoneal hemorrhage Prescriptions: No Action (DME) nebulizers Misc See Rx Instructions .ROUTE .MEDSUPPLY Qty: 1 RF: 0 albuterol sulfate 90 mcg/actuation HFA aerosol inhaler 2 puff inhalation Q6H PRN (Reason: shortness of breath or wheezing) 15 Days Qty: 6.7 RF: 0 ipratropium bromide 0.02 % solution 2.5 ml inhalation Q6H PRN (Reason: shortness of breath or wheezing) Qty: 12.5 RF: 0 tramadol 50 mg tablet 25 mg PO BID PRN (Reason: low back pain) Qty: 30 RF: 0 Anoro Ellipta 62.5-25 mcg/actuation blister with device 1 inh inhalation DAILY RF: 0 acetaminophen [Tylenol] 325 mg tablet 325 mg PO QID PRNRF: 0 cholecalciferol (vitamin D3) 1,250 mcg (50,000 unit) capsule 1,250 mcg PO QWEEK 90 Days Qty: 13 RF: 0
[2021-07-25 04:09] LABS: INTERNATIONAL NORM RATIO 1.2 (0.9-1.1); Prothrombin Time 13.2 SEC (9.9-13.0)
[2021-07-25 04:21] LABS: Alanine Aminotransferase 8 U/L (0-31); Albumin Level 3.8 g/dL (3.5-5.0); Alkaline Phosphatase 76 U/L (39-117); Anion Gap 16 (12-20); Aspartate Amino Transferase 25 U/L (5-31); Bilirubin Total 0.5 mg/dL (0.0-1.0); Blood Urea Nitrogen 5 mg/dL (9-16); Carbon Dioxide 22 mmol/L (22-29); Chloride 97 mmol/L (96-108); Creatinine Clr Calc Pharmacy 65.9; Estimated Glomerular Filt Rate > 60; Glucose Random 215 mg/dL (60-115); Potassium 3.8 mmol/L (3.3-5.1); Sodium 131 mmol/L (135-145); Total Protein 6.2 g/dL (6.5-8.0)
[2021-07-25 04:26] LABS: B Type Natriuretic Peptide 112 pg/mL (<100); Troponin-I High Sensitivity 3.7 ng/L (<3.5-17.0)
--- NOTE | 2021-07-25 04:46 | PC.NURSE ---
Lex Gan placed at [address] Euceda
[2021-07-25 04:52] LABS: Color Urine YELLOW; Glucose Urine UA 100 MG/DL (NEG); Leukocyte Esterase Urine NEG (NEG); Nitrite Urine NEG (NEG); UACC Culture Trigger NO; Urine Blood 3+ (NEG); Urine Ketones NEG (NEG); Urine Protein NEG (NEG-TRACE)
[2021-07-25] MEDS: fentaNYL citrate/PF 100 MCG/2 ML VIAL 12.5 MCG IVPUSH ×2 (04:59→05:25)
[2021-07-25] MEDS: 0.9 % Sodium Chloride 1,000 ML 999 ML IV (05:02)
[2021-07-25 05:03] LABS: Appearance Urine HAZY
[2021-07-25 05:04] LABS: COVID-19 Test Negative (Negative)
[2021-07-25 05:05] LABS: RBC Urine 30-49 /HPF (0)
[2021-07-25 05:06] LABS: Bacteria Urine 1+ /LPF; Squamous Epithelial Cell Urine 1+ /LPF
--- NOTE | 2021-07-25 05:51 | PC.NURSE ---
at 0537 pt reports increased SOB. transfusion paused, Dr Euceda made aware and to bedside, pt lung sounds reassessed without change from prior to transfusion. Pt without rash or any additional complaints, no additional O2 requirements. Per Dr Euceda, ok to continue to continue transfusion. Plan to monitor for additional 5 minutes prior to EMS transfer.
--- NOTE | 2021-07-25 05:52 | PC.NURSE ---
Per Dr Euceda, stop NS bolus.
--- NOTE | 2021-07-25 05:55 | PC.NURSE ---
Per Dr Euceda, pt ok to transfer to EMS stretcher for transport to [facility]
--- NOTE | 2021-07-25 06:05 | PC.NURSE ---
Pt transported out by EMS at this time.
--- NOTE | 2021-07-25 16:29 | PC.NURSE ---
Late entry: 604 - Patient was transferred to [facility]. Blood was still infusing upon transfer. Primary RN was Anabell Cruz RN
== END 2021-07-25 06:24 | disposition short-term general hospital (02) ==
PROVIDERS: Emergency Provider Student in an Organized Health Care Education/Training Program; PCP Internal Medicine
DX: S37.012A Minor contusion of left kidney, initial encounter (principal); S37.011A Minor contusion of right kidney, initial encounter; D50.9 Iron deficiency anemia, unspecified; R58 Hemorrhage, not elsewhere classified; R10.9 Unspecified abdominal pain; M54.50 Low back pain, unspecified; X58.XXXA Exposure to other specified factors, initial encounter; Y93.9 Activity, unspecified; Y92.9 Unspecified place or not applicable; Y99.9 Unspecified external cause status; Z20.822 Contact with and (suspected) exposure to COVID-19; Z79.899 Other long term (current) drug therapy; Z87.891 Personal history of nicotine dependence
CPT/HCPCS: 36415; 36430; 71275; 74174; 80053; 81001; 81003; 83880; 84484; 85025; 85610; 86850; 86900; 86901; 86923; 87635; 93005; 96361; 96374; 99285; J3010; P9016; Q9967

== ENCOUNTER → 2021-08-12 16:03 | Outpatient (BNVA) | payer MEDICARE, SELFPAY | PROVIDERS: PCP Internal Medicine; Visit Provider Internal Medicine Pulmonary Disease | DX: J44.9 Chronic obstructive pulmonary disease, unspecified (principal); R06.00 Dyspnea, unspecified; Z85.118 Personal history of other malignant neoplasm of bronchus and lung | CPT/HCPCS: 99212 ==

== ENCOUNTER 2021-08-22 15:45 | Outpatient (REF) | payer MEDICARE, SELFPAY ==
--- NOTE | 2021-08-22 17:26 | PFT_ITS ---
FLOWS: FEV1 31% of predicted at 0.68 L. FVC 35% of predicted at 1.01 L. FEV1 to FVC ratio of 0.68. No bronchodilator testing was performed as patient has had albuterol several hours prior to the test. LUNG VOLUMES: Total lung capacity 65% of predicted at 3.30 L. Residual volume 87% of predicted at 1.98 L. Slow vital capacity 47% of predicted at 1.32 L. Expiratory reserve volume 33% of predicted at 0.21 L. Diffusion capacity is severely decreased, diffusion capacity adjust to being mildly decreased after correction for alveolar ventilation. IMPRESSION: Very severe obstructive combined with moderate restrictive ventilatory defect. Decreased diffusion capacity suggests emphysema. Wilber Means MD AP/MODL / [id number]
== END 2021-08-22 15:46 | disposition home or self-care (01) ==
LOC: HO.RESP 15:45
PROVIDERS: PCP Internal Medicine; Visit Provider Internal Medicine Pulmonary Disease
DX: J44.9 Chronic obstructive pulmonary disease, unspecified (principal)
CPT/HCPCS: 94010; 94727; 94729

== ENCOUNTER → 2021-08-27 15:38 | Outpatient (BNVA) | payer MEDICARE, SELFPAY | PROVIDERS: PCP Internal Medicine; Visit Provider Internal Medicine Pulmonary Disease | DX: J44.9 Chronic obstructive pulmonary disease, unspecified (principal); R06.00 Dyspnea, unspecified | CPT/HCPCS: 99212 ==